=== PATIENT | male | born 1985 | race African-American/Black ===

== ENCOUNTER 2016-10-25 21:50 | Emergency (ER) | payer SELFPAY ==
[~2016-10-25 21:50] MED LIST: BENZ100 PO
[2016-10-25 21:55] VITALS: BP 149/75; PULSE 112; RESP 20; TEMP 98.5; O2SAT 100
[2016-10-25] MEDS ORDERED: SODIUM CHLOR 0.9% 1000 ML INJ 1,000 ML IV ONE (22:00)
--- NOTE | 2016-10-25 22:18 | PD ---
HPI Chief Complaint: Dizziness Time Seen by Provider: 21:52 Travel History International Travel<30 days: No Contact w/Intl Traveler<30days: No Traveled to known affect area: No History of Present Illness HPI This 31-year-old male says he was watching a football game when he suddenly became very thirsty and somewhat dizzy. He had smoked some pot before. He is not having any chest pain. He was not short of breath. He has a history of chronic back problems which she uses marijuana at times. PFSH Past Medical History Hx Anticoagulant Therapy: No Cardiovascular Problems: No Chemotherapy: No Cerebrovascular Accident: No Diabetes: No Diminished Hearing: No Respiratory: No Tetanus Vaccination: Unknown Past Surgical History Other Surgery: Yes (LEFT ACHILLES, LEFT HIP) Social History Alcohol Use: Yes (2 TIMES A WEEK) Tobacco Use: No Substance Use: No Allergies-Medications (Allergen,Severity, Reaction): Coded Allergies: No Known Allergies (Verified , 10/25/16) Reported Meds & Prescriptions Reported Meds & Active Scripts Active No Active Prescriptions or Reported Medications Review of Systems General / Constitutional: No: Fever Eyes: No: Diploplia, Blurred Vision HENT: No: Headaches, Vertigo Cardiovascular: Positive: Palpitations, No: Chest Pain or Discomfort Respiratory: No: Cough, Shortness of Breath Gastrointestinal: No: Nausea, Vomiting Genitourinary: No: Urgency Physical Exam Narrative GENERAL: Well-developed male. He is tachycardic on arrival SKIN: Focused skin assessment warm/dry. HEAD: Atraumatic. Normocephalic. EYES: Pupils equal and round. No scleral icterus. No injection or drainage. ENT: No nasal bleeding or discharge. Mucous membranes pink and moist. NECK: Trachea midline. No JVD. CARDIOVASCULAR: Regular rate and rhythm. No murmur appreciated. RESPIRATORY: No accessory muscle use. Clear to auscultation. Breath sounds equal bilaterally. GASTROINTESTINAL: Abdomen soft, non-tender, nondistended. Hepatic and splenic margins not palpable. MUSCULOSKELETAL: No obvious deformities. No clubbing. No cyanosis. No edema. NEUROLOGICAL: Awake and alert. No obvious cranial nerve deficits. Motor grossly within normal limits. Normal speech. PSYCHIATRIC: Appropriate mood and affect; insight and judgment normal. Data Data Last Documented VS Vital Signs Date Time Temp Pulse Resp B/P Pulse Ox O2 Delivery O2 Flow Rate FiO2 10/25/16 22:09 105 Room Air 10/25/16 21:55 98.5 20 149/75 100 Orders Complete Blood Count With Diff (10/25/16 21:52) Comprehensive Metabolic Panel (10/25/16 21:52) Magnesium (Mg) (10/25/16 21:52) Sodium Chlor 0.9% 1000 Ml Inj (Ns 1000 M (10/25/16 22:00) Lorazepam Inj (Ativan Inj) (10/25/16 22:30) Labs Laboratory Tests Test 10/25/16 22:00 White Blood Count 6.9 TH/MM3 Red Blood Count 5.09 MIL/MM3 Hemoglobin 14.2 GM/DL Hematocrit 44.1 % Mean Corpuscular Volume 86.6 FL Mean Corpuscular Hemoglobin 28.0 PG Mean Corpuscular Hemoglobin 32.3 % Concent Red Cell Distribution Width 12.7 % Platelet Count 244 TH/MM3 Mean Platelet Volume 8.8 FL Neutrophils (%) (Auto) 47.3 % Lymphocytes (%) (Auto) 41.2 % Monocytes (%) (Auto) 7.4 % Eosinophils (%) (Auto) 1.3 % Basophils (%) (Auto) 2.8 % Neutrophils # (Auto) 3.3 TH/MM3 Lymphocytes # (Auto) 2.8 TH/MM3 Monocytes # (Auto) 0.5 TH/MM3 Eosinophils # (Auto) 0.1 TH/MM3 Basophils # (Auto) 0.2 TH/MM3 CBC Comment DIFF FINAL Differential Comment Sodium Level 138 MEQ/L Potassium Level 3.6 MEQ/L Chloride Level 103 MEQ/L Carbon Dioxide Level 24.9 MEQ/L Anion Gap 10 MEQ/L Blood Urea Nitrogen 15 MG/DL Creatinine 1.30 MG/DL Estimat Glomerular Filtration 79 ML/MIN Rate Random Glucose 216 MG/DL Calcium Level 8.1 MG/DL Magnesium Level 2.3 MG/DL Total Bilirubin 0.6 MG/DL Aspartate Amino Transf 22 U/L (AST/SGOT) Alanine Aminotransferase 22 U/L (ALT/SGPT) Alkaline Phosphatase 60 U/L Total Protein 6.9 GM/DL Albumin 3.7 GM/DL [facility] Medical Decision Making Medical Screen Exam Complete: Yes Emergency Medical Condition: Yes Medical Record Reviewed: Yes Differential Diagnosis Differential includes electrolyte imbalance, adverse effect of marijuana, anxiety Narrative Course Patient was given Ativan and his been observed. He is stable for discharge. Blood work was done and sugar is slightly elevated but this was not a fasting specimen Diagnosis Primary Impression: Anxiety Scripts No Active Prescriptions or Reported Meds Disposition: DISCHARGE HOME Condition: Stable Gui Bocanegra MD October 25, 2016 22:18
[2016-10-25] MEDS ORDERED: LORazepam 2 MG/ML VIAL IV PUSH ONE (22:30)
[2016-10-25 22:31] LABS: CHLORIDE 103 MEQ/L (98-107); POTASSIUM 3.6 MEQ/L (3.5-5.1); SODIUM (NA) 138 MEQ/L (136-145)
[2016-10-25 22:34] LABS: AUTOMATED NEUTROPHIL # 3.3 TH/MM3 (1.8-7.7); BASOPHIL # 0.2 TH/MM3 (0-0.2); BASOPHIL % 2.8 % (0.0-2.0); EOSINOPHIL # 0.1 TH/MM3 (0-0.4); EOSINOPHIL % 1.3 % (0.0-4.0); HEMATOCRIT 44.1 % (39.0-51.0); HEMO FLAGS DIFF FINAL; LYMPH % 41.2 % (9.0-44.0); LYMPHOCYTE # 2.8 TH/MM3 (1.0-4.8); MEAN CELL VOLUME 86.6 FL (80.0-100.0); MEAN CORPUSCULAR HGB CONC 32.3 % (32.0-36.0); MONO % 7.4 % (0.0-8.0); NEUT % 47.3 % (16.0-70.0); PLATELET COUNT 244 TH/MM3 (150-450); RED BLOOD COUNT 5.09 MIL/MM3 (4.50-5.90); RED CELL DISTRIBUTION WIDTH 12.7 % (11.6-17.2); WHITE BLOOD COUNT 6.9 TH/MM3 (4.0-11.0)
[2016-10-25 22:35] LABS: ANION GAP 10 MEQ/L (5-15); BICARBONATE 24.9 MEQ/L (21.0-32.0); BLOOD UREA NITROGEN 15 MG/DL (7-18); MAGNESIUM 2.3 MG/DL (1.5-2.5)
[2016-10-25 22:37] LABS: ALT (GPT) 22 U/L (12-78)
[2016-10-25 22:38] LABS: AST (GOT) 22 U/L (15-37); GLOMERULAR FILTRATION RATE 79 ML/MIN (>89)
[2016-10-25 22:39] LABS: TOTAL BILIRUBIN ADULT 0.6 MG/DL (0.2-1.0)
[2016-10-25 22:40] LABS: ALKALINE PHOSPHATASE 60 U/L (45-117)
[2016-10-26 00:21] VITALS: BP 140/70; PULSE 98; RESP 18; O2SAT 100
== END 2016-10-26 00:26 | disposition home or self-care (01) ==
LOC: PHED 21:50
DX: F41.9 Anxiety disorder, unspecified (principal); Z87.39 Personal history of other diseases of the musculoskeletal system and connective tissue
CPT/HCPCS: 80053; 83735; 85025; 96361; 96374; 99284; J2060; J7030

== ENCOUNTER 2016-11-11 12:36 | Emergency (ER) | payer SELFPAY ==
[~2016-11-11] VITALS: Ht 170.2 cm; Wt 71.0 kg
[2016-11-11 12:37] VITALS: BP 154/97; PULSE 82; RESP 19; TEMP 98.2; O2SAT 98
--- NOTE | 2016-11-11 12:55 | PD ---
Physical Exam Time Seen by Provider: 12:54 Narrative 31 y/o male here for evaluation of weakness, decreased appetite for 2 weeks. Vital signs reviewed. Seen at triage desk. Awaiting bed placement. Data Data Last Documented VS Vital Signs Date Time Temp Pulse Resp B/P Pulse Ox O2 Delivery O2 Flow Rate FiO2 11/11/16 12:37 98.2 82 19 154/97 98 MDM Medical Record Reviewed: Yes Supervised Visit with KENNETH: No Scripts No Active Prescriptions or Reported Meds Cesar Abdi Nov 11, 2016 12:55
[2016-11-11] MEDS ORDERED: SODIUM CHLOR 0.9% 1000 ML INJ 1,000 ML IV SCH (15:48)
[2016-11-11 16:09] VITALS: BP 124/79; PULSE 70; RESP 20; TEMP 97.8; O2SAT 100
--- NOTE | 2016-11-11 16:11 | PD ---
Data Data Last Documented VS Vital Signs Date Time Temp Pulse Resp B/P Pulse Ox O2 Delivery O2 Flow Rate FiO2 11/11/16 12:37 98.2 82 19 154/97 98 Orders Complete Blood Count With Diff (11/11/16 15:48) Basic Metabolic Panel (Bmp) (11/11/16 15:48) Magnesium (Mg) (11/11/16 15:48) Thyroid Stimulating Hormone (11/11/16 15:48) Sodium Chlor 0.9% 1000 Ml Inj (Ns 1000 M (11/11/16 15:48) Creatine Kinase (Cpk) (11/11/16 15:48) MDM Supervised Visit with KENNETH: Yes Narrative Course The history, exam, and medical decision-making in the associated midlevel provider note were completed with my assistance. I reviewed and agree with the findings presented. I attest that I had a [id number] encounter with the patient on the same day, and personally performed and documented my assessment and findings in the medical record. *My assessment and Findings: This is a 31-year-old male who presents to the emergency department with generalized malaise and fatigue for 2 weeks. He was seen at [facility] 2 weeks ago and diagnosed with anxiety. He says he stopped smoking marijuana since then. He has a very benign exam. He is not having fevers and has no lymphadenopathy on exam to suggest an infectious etiology or mononucleosis. Labs will be obtained. If there reassuring I think he can follow-up with a primary care physician and I doubt there is an emergent etiology for his symptoms. Scripts No Active Prescriptions or Reported Meds Chari Arteaga MD Nov 11, 2016 16:11
--- NOTE | 2016-11-11 16:26 | PD ---
HPI Chief Complaint: General Weakness Time Seen by Provider: 16:23 Travel History International Travel<30 days: No Contact w/Intl Traveler<30days: No Traveled to known affect area: No History of Present Illness HPI 31-year-old male that presents to the ED for evaluation of generalized weakness. Per patient she's had weakness for about 2-3 weeks now. Per patient he was seen at [facility] and was diagnosed with dehydration and anxiety. At the time patient was smoking marijuana which she states she no longer does. Per patient he does work outside a lot and he is concerned that he might be dehydrated again. Per patient he has no other symptom. No chest pain. He does state that he's had some cough. No sore throat. No congestion. No sick contacts. No recent travel. No chest pain. No urinary symptoms. Takes no medications. Has no allergies to medication. Really no other complaints other than just weakness. PFSH Past Medical History Hx Anticoagulant Therapy: No Cardiovascular Problems: No Chemotherapy: No Cerebrovascular Accident: No Diabetes: No Diminished Hearing: No Respiratory: No Tetanus Vaccination: Unknown Influenza Vaccination: No Past Surgical History Other Surgery: Yes (LEFT ACHILLES, LEFT HIP BONE GRAFT ) Social History Alcohol Use: Yes (3 TIMES A WEEK) Tobacco Use: No Substance Use: Yes (CANNABIS ) Allergies-Medications (Allergen,Severity, Reaction): Coded Allergies: No Known Allergies (Verified , 11/11/16) Reported Meds & Prescriptions Reported Meds & Active Scripts Active No Active Prescriptions or Reported Medications Review of Systems Except as stated in HPI: all other systems reviewed are Neg Physical Exam Narrative GENERAL: SKIN: Warm and dry. HEAD: Atraumatic. Normocephalic. EYES: Pupils equal and round. No scleral icterus. No injection or drainage. ENT: No nasal bleeding or discharge. Mucous membranes pink and moist. Tongue is midline. No uvula deviation. NECK: Trachea midline. No JVD. CARDIOVASCULAR: Regular rate and rhythm. No murmurs, S3, S4. RESPIRATORY: No accessory muscle use. Clear to auscultation. Breath sounds equal bilaterally. GASTROINTESTINAL: Abdomen soft, non-tender, nondistended. Hepatic and splenic margins not palpable. MUSCULOSKELETAL: Extremities without clubbing, cyanosis, or edema. No obvious deformities. Full range of motion of the upper and lower extremities bilaterally. 2+ pulses bilaterally. NEUROLOGICAL: Awake and alert. No obvious cranial nerve deficits. Motor grossly within normal limits. Five out of 5 muscle strength in the arms and legs. Normal speech. PSYCHIATRIC: Appropriate mood and affect; insight and judgment normal. Data Data Last Documented VS Vital Signs Date Time Temp Pulse Resp B/P Pulse Ox O2 Delivery O2 Flow Rate FiO2 11/11/16 16:09 20 100 11/11/16 16:09 97.8 70 124/79 Room Air Orders Complete Blood Count With Diff (11/11/16 15:48) Basic Metabolic Panel (Bmp) (11/11/16 15:48) Magnesium (Mg) (11/11/16 15:48) Thyroid Stimulating Hormone (11/11/16 15:48) Sodium Chlor 0.9% 1000 Ml Inj (Ns 1000 M (11/11/16 15:48) Creatine Kinase (Cpk) (11/11/16 15:48) Labs Laboratory Tests Test 11/11/16 16:25 White Blood Count 6.4 TH/MM3 Red Blood Count 5.72 MIL/MM3 Hemoglobin 16.2 GM/DL Hematocrit 47.5 % Mean Corpuscular Volume 83.1 FL Mean Corpuscular Hemoglobin 28.3 PG Mean Corpuscular Hemoglobin 34.1 % Concent Red Cell Distribution Width 13.0 % Platelet Count 301 TH/MM3 Mean Platelet Volume 8.3 FL Neutrophils (%) (Auto) 48.5 % Lymphocytes (%) (Auto) 42.2 % Monocytes (%) (Auto) 7.2 % Eosinophils (%) (Auto) 1.9 % Basophils (%) (Auto) 0.2 % Neutrophils # (Auto) 3.1 TH/MM3 Lymphocytes # (Auto) 2.7 TH/MM3 Monocytes # (Auto) 0.5 TH/MM3 Eosinophils # (Auto) 0.1 TH/MM3 Basophils # (Auto) 0.0 TH/MM3 CBC Comment DIFF FINAL Differential Comment Sodium Level 136 MEQ/L Potassium Level 4.1 MEQ/L Chloride Level 101 MEQ/L Carbon Dioxide Level 28.5 MEQ/L Anion Gap 7 MEQ/L Blood Urea Nitrogen 16 MG/DL Creatinine 1.22 MG/DL Estimat Glomerular Filtration 85 ML/MIN Rate Random Glucose 85 MG/DL Calcium Level 8.9 MG/DL Magnesium Level 2.4 MG/DL Total Creatine Kinase 226 U/L Thyroid Stimulating Hormone 0.951 uIU/ML 3rd Gen [facility] Medical Decision Making Medical Screen Exam Complete: Yes Emergency Medical Condition: Yes Medical Record Reviewed: Yes Interpretation(s) CBC & BMP Diagram 11/11/16 16:25 TSH and CRP WNL Differential Diagnosis Generalized weakness versus dehydration versus viral illness versus normal exam Narrative Course 31-year-old male that presents to the ED for evaluation of weakness. Patient was properly examined and was found to have signs and symptoms of unclear etiology. His physical exam is very benign. We'll do basic blood work and give him fluids. Labs showed no sign of acute disease. Patient was reassured. At this time I do not have an obvious cause of the genitals weakness but this could be anxiety. I recommend that he continues to drink plenty of fluids. Follow up with PCP. See ED worsening symptoms. Diagnosis Primary Impression: Weakness Patient Instructions: General Instructions Additional Instructions: Continues to drink plenty of fluids. Labs and everything came here normal. Follow with PCP if this continues. Symptoms should to get him through. Avoid drugs or alcohol. See ED for any worsening symptoms. Med/Other Pt SpecificInfo: No Change to Meds Scripts No Active Prescriptions or Reported Meds Disposition: 01 DISCHARGE HOME Condition: Stable Philippe Hale Nov 11, 2016 16:26
[2016-11-11 16:44] LABS: AUTOMATED NEUTROPHIL # 3.1 TH/MM3 (1.8-7.7); BASOPHIL % 0.2 % (0.0-2.0); EOSINOPHIL # 0.1 TH/MM3 (0-0.4); EOSINOPHIL % 1.9 % (0.0-4.0); HEMATOCRIT 47.5 % (39.0-51.0); HEMO FLAGS DIFF FINAL; LYMPH % 42.2 % (9.0-44.0); LYMPHOCYTE # 2.7 TH/MM3 (1.0-4.8); MEAN CELL VOLUME 83.1 FL (80.0-100.0); MEAN CORPUSCULAR HEMOGLOBIN 28.3 PG (27.0-34.0); MEAN CORPUSCULAR HGB CONC 34.1 % (32.0-36.0); MONO % 7.2 % (0.0-8.0); NEUT % 48.5 % (16.0-70.0); PLATELET COUNT 301 TH/MM3 (150-450); RED BLOOD COUNT 5.72 MIL/MM3 (4.50-5.90); WHITE BLOOD COUNT 6.4 TH/MM3 (4.0-11.0)
[2016-11-11 16:57] LABS: BICARBONATE 28.5 MEQ/L (21.0-32.0); MAGNESIUM 2.4 MG/DL (1.5-2.5); POTASSIUM 4.1 MEQ/L (3.5-5.1)
== END 2016-11-11 18:13 | disposition home or self-care (01) ==
LOC: NEPD 17:12
DX: R53.1 Weakness (principal); F12.90 Cannabis use, unspecified, uncomplicated
CPT/HCPCS: 80048; 82550; 83735; 84443; 85025; 96360; 99284; J7030

== ENCOUNTER 2016-12-28 11:51 | Emergency (ER) | payer SELFPAY ==
[~2016-12-28] VITALS: Ht 167.6 cm; Wt 70.0 kg
[2016-12-28 11:52] VITALS: BP 136/83; PULSE 79; RESP 15; TEMP 98.6; O2SAT 98
--- NOTE | 2016-12-28 12:18 | PD ---
HPI . "I have bronchitis" Chief Complaint: ENT Complaint Time Seen by Provider: 12:15 Travel History International Travel<30 days: No Contact w/Intl Traveler<30days: No Traveled to known affect area: No History of Present Illness HPI 31-year-old male with no significant past medical he stated he has bronchitis. Patient reports that he's been coughing for the past few days and that his throat feels like it expanded. He says it's tender at times, but he is able to eat, swallow and drink normally. He denies any shortness of breath, difficulty swallowing, drooling, fever, chills, chest pain or shortness of breath. He has no other complaints. PFSH Past Medical History Medical History: Denies Significant Hx Hx Anticoagulant Therapy: No Cardiovascular Problems: No Chemotherapy: No Cerebrovascular Accident: No Diabetes: No Diminished Hearing: No Respiratory: No Past Surgical History Other Surgery: Yes (LEFT ACHILLES, LEFT HIP BONE GRAFT ) Social History Alcohol Use: Yes (3 TIMES A WEEK) Tobacco Use: No Substance Use: Yes (CANNABIS ) Allergies-Medications (Allergen,Severity, Reaction): Coded Allergies: No Known Allergies (Verified , 11/11/16) Reported Meds & Prescriptions Reported Meds & Active Scripts Active No Active Prescriptions or Reported Medications Review of Systems General / Constitutional: No: Fever Eyes: No: Visual changes HENT: Positive: Sore Throat, No: Headaches Cardiovascular: No: Chest Pain or Discomfort Respiratory: Positive: Cough, No: Shortness of Breath Gastrointestinal: No: Abdominal Pain Genitourinary: No: Dysuria Musculoskeletal: No: Pain Skin: No Rash Neurologic: No: Weakness Psychiatric: No: Depression Endocrine: No: Polydipsia Hematologic/Lymphatic: No: Easy Bruising Physical Exam Narrative GENERAL: AAO x 3, no acute distress, Well-nourished, well-developed patient. SKIN: Warm and dry. No visible rashes or bruising. HEAD: Normocephalic and atraumatic. EYES: No scleral icterus. No injection or drainage. ENT: No nasal drainage noted. Mucous membranes pink. Airway patent. No oropharynx abn NECK: Supple, trachea midline. No JVD. No lymphadenopathy CARDIOVASCULAR: Regular rate and rhythm without murmurs, gallops, or rubs. RESPIRATORY: Breath sounds equal bilaterally. No accessory muscle use. No rhonchi or rales. No wheezing GASTROINTESTINAL: Abdomen soft, non-tender, nondistended. EXTREMITIES: No cyanosis or edema. BACK: No obvious deformity. NEURO: CN II-12 intact, PSYCH: AAO x 3, normal affect. Data Data Last Documented VS Vital Signs Date Time Temp Pulse Resp B/P Pulse Ox O2 Delivery O2 Flow Rate FiO2 12/28/16 11:52 98.6 79 15 136/83 98 MDM Medical Decision Making Medical Screen Exam Complete: Yes Emergency Medical Condition: No Medical Record Reviewed: Yes Differential Diagnosis Viral bronchitis, viral syndrome, viral pharyngitis, less likely influenza, less likely pneumonia Narrative Course A medical screening exam was performed: At the time of evaluation the presenting medical condition was determined not to be of an emergent nature. The patient was given the option of receiving additional care, but declined. Patient was given options for additional community resources from which to obtain care. The Patient Has Been advised to seek medical attention for their presenting complaint. The patient has been advised to return to the ER at any time if an emergent condition develops. Exam is unremarkable. I explained to patient. He was understanding. Diagnosis Primary Impression: Encounter for medical screening examination Scripts No Active Prescriptions or Reported Meds Condition: Stable Arielle Jewell Dec 28, 2016 12:18
== END 2016-12-28 12:26 | disposition left against medical advice (07) ==
LOC: NEPD 11:51
DX: R05 Cough (principal)
CPT/HCPCS: 99281